=== PATIENT | female | born 1960 | race Caucasian/White ===

== ENCOUNTER 2022-03-10 19:24 | Inpatient (IN) | payer OTHER ==
[~2022-03-10] VITALS: Ht 167.6 cm; Wt 104.2 kg
[2022-03-10 19:46] LABS: BASOPHILS ABSOLUTE AUTO 0.02 K/mm3 (0.00-0.23); BASOPHILS PERCENT AUTO 0 % (0-2); EOSINOPHILS PERCENT AUTO 0 % (0-6); Hematocrit 37.4 % (33.0-51.0); Hemoglobin 11.2 g/dL (11.5-16.0); IMMATURE GRAN ABSOLUTE AUTO 0.19 K/mm3 (0.00-0.10); IMMATURE GRAN PERCENT AUTO 2 % (0-1); LYMPHOCYTES ABSOLUTE AUTO 1.18 K/mm3 (0.84-5.20); LYMPHOCYTES PERCENT AUTO 13 % (21-46); MONOCYTES ABSOLUTE AUTO 0.54 K/mm3 (0.16-1.47); MONOCYTES PERCENT AUTO 6 % (4-13); Mean Corpuscular HGB 29.5 pg (26.0-34.0); Mean Corpuscular HGB Conc 29.9 g/dL (31.5-36.5); Mean Corpuscular Volume 98 fL (80-100); Mean Platelet Volume 10.4 fL (9.1-12.4); NEUTROPHILS ABSOLUTE AUTO 7.49 K/mm3 (1.96-9.15); NEUTROPHILS PERCENT AUTO 80 % (41-73); NRBC ABSOLUTE 0.32 K/mm3 (0.00-0.02); NRBC Auto 3.4 /100 WBC (0.0-0.2); Platelet Count 261 K/mm3 (150-400); RDW Coefficient Variation 15.2 % (11.7-14.2); RDW Standard Deviation 54.7 fL (35.1-46.3); White Blood Cell Count 9.42 K/mm3 (4.00-11.30)
[2022-03-10 20:13] LABS: Magnesium, Blood 1.9 mg/dL (1.6-2.4)
[2022-03-10 20:27] LABS: Albumin, Blood 2.9 g/dL (3.4-5.0); Albumin/Globulin Ratio 0.6 (0.8-1.8); Bilirubin, Total 0.3 mg/dL (0.1-1.0); Bun/Creatinine Ratio 12.3 (12.0-20.0); Calcium, Blood 8.4 mg/dL (8.5-10.1); Creatinine, Blood 5.06 mg/dL (0.40-1.00); Globulin, Blood 4.7 g/dL (2.2-4.0); Phosphorus, Blood 8.9 mg/dL (2.5-4.9); Potassium, Blood 6.4 mmol/L (3.5-5.5); Total Protein, Blood 7.6 g/dL (6.4-8.2)
[2022-03-10 20:28] LABS: Base Excess Venous -10.9 mmol/L; PCO2 Venous 46.9 mmHg (38-42); pH Blood Venous 7.18 (7.34-7.37)
[2022-03-10 22:02] LABS: International Normalized Ratio 1.18; Prothrombin Time Results 12.3 Sec (9.7-11.5)
[2022-03-10] MEDS ORDERED: SPIRONOLACTONE25 MG PO (23:32)
[2022-03-10] MEDS ORDERED: ATENOLOL25 MG PO (23:33)
[2022-03-10] MEDS ORDERED: VICTOZA 2-0.6 MG/0.1 SQ (23:33)
[2022-03-10] MEDS ORDERED: ELIQUIS5 M3 PO (23:34)
[2022-03-10] MEDS ORDERED: DILTIAZEM 24HR240 M3 PO (23:34)
[2022-03-10] MEDS ORDERED: FUROSEMIDE20 MG PO (23:35)
[2022-03-10] MEDS ORDERED: Cyclobenzaprine5 MG (23:36)
[2022-03-10] MEDS ORDERED: NEURONTIN300 MG PO (23:37)
[2022-03-10] MEDS ORDERED: ATOR40TA PO (23:37)
[2022-03-10] MEDS ORDERED: Ventolin/Prove6.7 GM INH (23:38)
[2022-03-10] MEDS ORDERED: EUTHYROX112 MC1 PO (23:38)
[2022-03-10] MEDS ORDERED: ALLO300 PO (23:39)
[2022-03-10] MEDS ORDERED: AMLODIPINE BESYL5 MG PO (23:39)
[2022-03-11 01:18] LABS: Albumin, Blood 2.9 g/dL (3.4-5.0); Anion Gap 12 mmol/L (6-16); Blood Urea Nitrogen 64 mg/dL (8-24); Bun/Creatinine Ratio 12.2 (12.0-20.0); CO2, Blood 21 mmol/L (21-32); Calcium, Blood 8.8 mg/dL (8.5-10.1); Chloride, Blood 99 mmol/L (98-108); Creatinine, Blood 5.23 mg/dL (0.40-1.00); Glomerular Filtration Rate 9 (60-); Glucose, Blood 89 mg/dL (70-99); Phosphorus, Blood 8.5 mg/dL (2.5-4.9); Sodium, Blood 132 mmol/L (136-145)
--- NOTE | 2022-03-11 01:38 | NUR ---
PATIENT TO ICU 9 FROM ER AT 2305. PATIENT IS ALERT AND ORIENTED X4. PLACED ON BIPAP 15/10 FI02 100% RR 20s, LS CLEAR TO DIMINISHED. ON NC 02 SATS IN THE 70s. HR A. FIB 60s-70s. BP STABLE, DENIES CP/PRESSURE. SCHAFFER CHANGED OUT, UNABLE TO GET ENOUGH URINE FROM CATHETER AT THIS TIME FOR A UA. CALL PLACED TO DR. JEROME FOR CONSULT.
[2022-03-11 01:56] LABS: Base Excess Venous -8.6 mmol/L; Bicarbonate Venous 17.2 mmol/L (24.0-30.0); PCO2 Venous 55.3 mmHg (38-42); pH Blood Venous 7.17 (7.34-7.37)
[2022-03-11 06:02] LABS: Base Excess Venous -5.7 mmol/L; Bicarbonate Venous 19.3 mmol/L (24.0-30.0); PCO2 Venous 56.2 mmHg (38-42); pH Blood Venous 7.21 (7.34-7.37)
[2022-03-11 06:18] LABS: BASOPHILS ABSOLUTE AUTO 0.02 K/mm3 (0.00-0.23); BASOPHILS PERCENT AUTO 0 % (0-2); EOSINOPHILS ABSOLUTE AUTO 0.01 K/mm3 (0.00-0.68); EOSINOPHILS PERCENT AUTO 0 % (0-6); Hematocrit 34.7 % (33.0-51.0); Hemoglobin 10.6 g/dL (11.5-16.0); IMMATURE GRAN ABSOLUTE AUTO 0.09 K/mm3 (0.00-0.10); IMMATURE GRAN PERCENT AUTO 1 % (0-1); LYMPHOCYTES ABSOLUTE AUTO 1.07 K/mm3 (0.84-5.20); LYMPHOCYTES PERCENT AUTO 11 % (21-46); MONOCYTES ABSOLUTE AUTO 0.82 K/mm3 (0.16-1.47); MONOCYTES PERCENT AUTO 8 % (4-13); Mean Corpuscular HGB 29.9 pg (26.0-34.0); Mean Corpuscular HGB Conc 30.5 g/dL (31.5-36.5); Mean Corpuscular Volume 98 fL (80-100); Mean Platelet Volume 10.5 fL (9.1-12.4); NEUTROPHILS ABSOLUTE AUTO 8.09 K/mm3 (1.96-9.15); NEUTROPHILS PERCENT AUTO 80 % (41-73); NRBC ABSOLUTE 0.27 K/mm3 (0.00-0.02); NRBC Auto 2.7 /100 WBC (0.0-0.2); Platelet Count 263 K/mm3 (150-400); RDW Standard Deviation 54.4 fL (35.1-46.3); Red Blood Cell Count 3.55 M/mm3 (3.80-5.20)
--- NOTE | 2022-03-11 06:18 | NUR ---
SHIFT SUMMARY PATIENT IS ALERT AND ORIENTED X4. 02 SATS 93% ON BIPAP 20/10 90%, RR 20. HR A.FIB TO SR, 70s. BP STABLE. MEDICATED FOR HIGH POTASSIUM. ALSO GIVEN BICARB PER DR. JEROME. KARIME WITH MINIMAL OUTPUT OF 5MLS, UNBLE TO SEND UA STILL. PATIENT ABLE TO REPOSITION SELF. CALL LIGHT IN REACH.
[2022-03-11 06:43] LABS: Albumin, Blood 2.6 g/dL (3.4-5.0); Anion Gap 10 mmol/L (6-16); Blood Urea Nitrogen 65 mg/dL (8-24); CO2, Blood 23 mmol/L (21-32); Calcium, Blood 8.4 mg/dL (8.5-10.1); Chloride, Blood 102 mmol/L (98-108); Glomerular Filtration Rate 9 (60-); Glucose, Blood 93 mg/dL (70-99); Phosphorus, Blood 8.9 mg/dL (2.5-4.9); Potassium, Blood 6.2 mmol/L (3.5-5.5); Sodium, Blood 135 mmol/L (136-145)
--- NOTE | 2022-03-11 07:56 | NUR ---
CARE OF PT ASSUMED AT 0700. PT SLEEPING W BIPAP ON 14/12, 90%. PT AWAKENS TO VOICE, OX3, DROWSY. DENIES C/O PAIN, C/O SOME SOB. RT AT BEDSIDE. HIGH FLOW N/C PLACED AT 13L BY RT. OKAY TO STAY ON HIGH FLOW JONATHAN PER DR FREED WHOM IS AT BEDSIDE WELL. PT DOES HAVE SOME WOB, SCATTERED WHEEZES T/O. ALBUTEROL UDN ORDERED AND GIVEN. LOKELMA GIVEN FOR K+6.2. INSULIN 10UNITS IV W D50 ORDERED. BP'S SOFT W MAP >65. DR AGUILAR CONSULTED FOR TRIALYSIS CATHETER.
--- NOTE | 2022-03-11 08:19 | NUR ---
INSULIN 10UNITS IV/ AMP D50 GIVEN PER DR LOO/DR FREED. PT'S SATS DROPPED TO 81% ON 15L HIGH FLOW, BIPAP REPLACED BY RT. SATS >95% ON 80% FIO2.
--- NOTE | 2022-03-11 10:44 | NUR ---
TRIALYSIS CATHETER PLACED BY DR AGUILAR. BIPAP INCREASED TO 18/12, 100% BY DR AGUILAR; RT NOTIFIED. LINE VARIFIED BY XR. BROADCAST TRAFFIC COORDINATOR AT BEDSIDE, HD RN AT BEDSIDE SETTING UP FOR HD. PT MAY REQUIRE PRESSORS BP SOFT AND LABILE; LEVOPHED ORDERED. K+6.0; RESULTS GIVEN TO HD RN AND DR AGUILAR. PT DESATURATES WITH ANY MOVEMENT.
--- NOTE | 2022-03-11 15:47 | NUR ---
HD FINISHED, 2.7L REMOVED. PT JONATHAN WELL. LEVOPHED AT 1MCG USED BRIEFLY DURING HD; LEVOPHED OFF NOW. ABLE TO REMOVE BIPAP AND PLACE PT ON 12L HIGH FLOW AFTER HD. PT'S DAUGHTER UPDATED W PT'S PERMISSION.
--- NOTE | 2022-03-11 17:51 | NUR ---
DR FREED AND DR LOO STOPPED BY TO CHECK ON PT. RENAL DIET ORDERED. 02 TITRATED DOWN TO 7L. PT EATING DINNER NOW W/O COMPLAINTS.
--- NOTE | 2022-03-11 19:00 | NUR ---
ASSUMED CARE ASSUMED CARE OF THIS PATIENT AT 1900. PATIENT IS LYING IN BED WITH EYES CLOSED. DINNER TRAY ON BEDSIDE TABLE DIRECTLY IN FRONT OF PATIENT. CELL PHONE AND GLASSES ON TABLE. NO FAMILY OR VISITORS AT BEDSIDE. SCHAFFER CATHETER HAS SCANT AMOUNT OF DARK ORANGE URINE. LEVOPHED HANGING IN IV PUMP, BUT DISCONNECTED FROM THE PATIENT. PATIENT DENIES PAIN AT THIS TIME. BEDSIDE REPORT COMPLETED WITH ALETHEA GIBSON.
--- NOTE | 2022-03-11 19:20 | NUR ---
LILIA ORDER CALL MADE TO DR. JEROME TO CLARIFY LILIA TIParviz ORDER. PATIENT HAD A POTASSIUM LEVEL OF 6.0 THIS AM AND STARTED DIALYSIS AFTER THAT RESULT. ORDERS RECEIVED TO ME LILIA DALEY.
--- NOTE | 2022-03-11 23:29 | NUR ---
ASSUMPTION OF CARE PATIENT TRANSFERRED FROM ICU 9 TO ICU 2. PATIENT TRANSFERRED WITH THE ASSISTANCE OF RT. PATIENT WEARING BIPAP, TOLERATING WELL, O2 SAT >90%. VSS. SCHAFFER IN PLACE WITH MINIMAL DARK YELLOW URINE IN BAG. DENIES ANY NEEDS AT THIS TIME, BED IN LOW POSITION, CALL LIGHT IN REACH.
[2022-03-12 03:34] LABS: BASOPHILS ABSOLUTE AUTO 0.01 K/mm3 (0.00-0.23); BASOPHILS PERCENT AUTO 0 % (0-2); EOSINOPHILS ABSOLUTE AUTO 0.01 K/mm3 (0.00-0.68); EOSINOPHILS PERCENT AUTO 0 % (0-6); Hematocrit 30.3 % (33.0-51.0); Hemoglobin 9.6 g/dL (11.5-16.0); IMMATURE GRAN ABSOLUTE AUTO 0.03 K/mm3 (0.00-0.10); IMMATURE GRAN PERCENT AUTO 0 % (0-1); LYMPHOCYTES ABSOLUTE AUTO 0.89 K/mm3 (0.84-5.20); LYMPHOCYTES PERCENT AUTO 13 % (21-46); MONOCYTES ABSOLUTE AUTO 0.52 K/mm3 (0.16-1.47); MONOCYTES PERCENT AUTO 8 % (4-13); Mean Corpuscular HGB 30.1 pg (26.0-34.0); Mean Corpuscular HGB Conc 31.7 g/dL (31.5-36.5); Mean Corpuscular Volume 95 fL (80-100); Mean Platelet Volume 10.2 fL (9.1-12.4); NEUTROPHILS ABSOLUTE AUTO 5.25 K/mm3 (1.96-9.15); NEUTROPHILS PERCENT AUTO 78 % (41-73); NRBC ABSOLUTE 0.07 K/mm3 (0.00-0.02); Platelet Count 166 K/mm3 (150-400); RDW Coefficient Variation 15.2 % (11.7-14.2); RDW Standard Deviation 52.6 fL (35.1-46.3); Red Blood Cell Count 3.19 M/mm3 (3.80-5.20); White Blood Cell Count 6.71 K/mm3 (4.00-11.30)
--- NOTE | 2022-03-12 06:21 | NUR ---
SHIFT SUMMARY PATIENT ALERT AND ORIENTED, ABLE TO MAKE NEEDS KNOWN TO STAFF. VSS. PATIENT WAS ON BIPAP FROM ASSUMPTION OF CARE UNTIL 614. PATIENT ON 15L HFNC WHILE AWAKE. O2 SAT LOW TO MID 90s. PATIENT REMINDED TO FOCUS ON BREATHING WHILE OFF BIPAP TO MAINTAIN O2 SAT. PATIENT SITTING UP IN BED WATCHING TV THIS MORNING BUT WAS ABLE TO GET SOME SLEEP DURING THE SHIFT. MEDICATED PER EMAR FOR Q6 BLOOD GLUCOSE. SCHAFFER IN PLACE WITH MINIMAL DARK URINE IN DRAINAGE BAG. PATIENT ABLE TO ASSIST STAFF WITH TURNS IN THE BED. PATIENT DENIES ANY PAIN OR CHEST PRESSURE T/O NIGHT. NO OTHER SIGNIFICANT CHANGES.
[2022-03-12 06:30] LABS: Albumin, Blood 2.6 g/dL (3.4-5.0); Anion Gap 8 mmol/L (6-16); Blood Urea Nitrogen 48 mg/dL (8-24); Bun/Creatinine Ratio 9.4 (12.0-20.0); CO2, Blood 27 mmol/L (21-32); Chloride, Blood 97 mmol/L (98-108); Creatinine, Blood 5.13 mg/dL (0.40-1.00); Glomerular Filtration Rate 9 (60-); Glucose, Blood 156 mg/dL (70-99); Phosphorus, Blood 6.6 mg/dL (2.5-4.9); Potassium, Blood 4.6 mmol/L (3.5-5.5); Sodium, Blood 132 mmol/L (136-145)
--- NOTE | 2022-03-12 07:19 | NUR ---
Assumed care. Bedside report received. Pt resting in bed, alert and oriented, on 02 via humidified, high-flow NC at 12 L/min. VS stable, no acute needs at this time. Continue to monitor.
--- NOTE | 2022-03-12 18:28 | NUR ---
Shift summary. Dialysis completed this am. Pt rested in bed throughout shift. High-flow NC titrated down to 8 L/min. Pt up to bedside commode without difficulty, able to ambulate independently. VS stable throughout shift. One dose of midodrine given during dialysis for soft BP. No acute events, see assessment for further details, will continue to monitor and report off to nightshift RN.
--- NOTE | 2022-03-12 21:00 | NUR ---
ASSUMPTION OF CARE/ASSESSMENT: ASSUMED CARE OF PT AT 1900. PT IS SLEEPING BUT WAKES EASILY, A&O X 4 AND PLEASANT. PT CURRENTLY ON HFNC @ 8LPM WITH SPO2 95<; CLEAR INSPIRATORY SOUNDS, WHEEZE NOTED ON EXPIRATORY IN ALL LOBES, DIM BASES BILATERALLY. PT SINUS TACH ON MONITOR WHEN I ASSUMED CARE, BUT NOW PT IN AFIB ON MONITOR WITH HR IN THE 100'S. 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 PT HAS HYPOACTIVE BS IN ALL QUADRANTS; PT USING BEDSIDE COMMODE FOR VOIDING/ELIMINATION. PT SKIN WARM AND PPP X 4. PT HAS PIV, 20 G TO R. WRIST THAT FLUSHES AND DRAWS BACK BLOOD EASILY; PIV SALINE LOCKED. PT BACK TO SLEEP. BED LOWERE, CALL LIGHT IN REACH, WILL CONTINUE TO MONITOR.
[2022-03-13 04:05] LABS: BASOPHILS ABSOLUTE AUTO 0.01 K/mm3 (0.00-0.23); BASOPHILS PERCENT AUTO 0 % (0-2); EOSINOPHILS ABSOLUTE AUTO 0.04 K/mm3 (0.00-0.68); EOSINOPHILS PERCENT AUTO 1 % (0-6); Hematocrit 29.4 % (33.0-51.0); Hemoglobin 9.3 g/dL (11.5-16.0); IMMATURE GRAN ABSOLUTE AUTO 0.03 K/mm3 (0.00-0.10); IMMATURE GRAN PERCENT AUTO 1 % (0-1); LYMPHOCYTES ABSOLUTE AUTO 0.94 K/mm3 (0.84-5.20); LYMPHOCYTES PERCENT AUTO 17 % (21-46); MONOCYTES ABSOLUTE AUTO 0.61 K/mm3 (0.16-1.47); MONOCYTES PERCENT AUTO 11 % (4-13); Mean Corpuscular HGB Conc 31.6 g/dL (31.5-36.5); Mean Corpuscular Volume 95 fL (80-100); Mean Platelet Volume 9.9 fL (9.1-12.4); NEUTROPHILS ABSOLUTE AUTO 3.92 K/mm3 (1.96-9.15); NEUTROPHILS PERCENT AUTO 71 % (41-73); NRBC ABSOLUTE 0.02 K/mm3 (0.00-0.02); NRBC Auto 0.4 /100 WBC (0.0-0.2); Platelet Count 138 K/mm3 (150-400); RDW Coefficient Variation 15.2 % (11.7-14.2); RDW Standard Deviation 52.3 fL (35.1-46.3); White Blood Cell Count 5.55 K/mm3 (4.00-11.30)
[2022-03-13 04:26] LABS: Albumin, Blood 2.6 g/dL (3.4-5.0); Anion Gap 6 mmol/L (6-16); Blood Urea Nitrogen 38 mg/dL (8-24); Bun/Creatinine Ratio 9.4 (12.0-20.0); CO2, Blood 29 mmol/L (21-32); Calcium, Blood 8.2 mg/dL (8.5-10.1); Chloride, Blood 97 mmol/L (98-108); Creatinine, Blood 4.06 mg/dL (0.40-1.00); Glomerular Filtration Rate 12 (60-); Glucose, Blood 176 mg/dL (70-99); Potassium, Blood 3.8 mmol/L (3.5-5.5); Sodium, Blood 132 mmol/L (136-145)
[2022-03-13 04:29] LABS: Phosphorus, Blood 3.6 mg/dL (2.5-4.9)
--- NOTE | 2022-03-13 06:27 | NUR ---
SHIFT SUMMARY: NO ACUTE CHANGES OVERNIGHT. PT REMAINED ON HFNC @ 8LPM THROUGHOUT THE NIGHT AND MAINTAINED SPO2 96<. PT SLEPT THROUGHOUT THE NIGHT AND IS INDEPENDENT WITH BED MOBILITY. DR JEROME ASSESS PT VIA TELEHEALTH AND PLANS FOR DIALYSIS DAILY FOR THE NEXT TWO DAYS AND THEN MOVE TO EVERY OTHER DAY UNTIL INNATE KINDEY FUNCTIONS IMPROVE. WILL CONTINUE TO MONITOR UNTIL ONCOMING RN ARRIVES.
--- NOTE | 2022-03-13 08:40 | NUR ---
INITIAL ASSESSMENT PATIENT SITTING UP ON SIDE OF BED EATING BREAKFAST. PATIENT ALERT AND ORIENTED X 4, AFEBRILE. PATIENT DENIES PAIN. CIWA SCORE OF ZERO. PATIENT SBA TO TOILET. LUNGS CLEAR T/O AND DIM IN LOWER LOBES. PATIENT DECREASED FROM HFNC 8 L TO 4 L AND REMAINS SATTING 90% AND GREATER. PATIENT STATES SHE HAS "HER NORMAL COUGH IN AM". PATIENT IN A. FIB, HR 1-TEENS TO 120S. SBP LOW 100S TO 140S. 1+ EDEMA NOTED TO BLES. GI WNL. GOOD APPETITE. LAST BM 4 DAYS AGO. OLIGURIC; RECEIVING DAILY DIALYSIS. SKIN PALE. SCAB NOTED TO RLE. SCATTERED BRUISING NOTED. IVS SALINE LOCKED. TRIALYSIS NOTED TO L IJ. BED LOW, CALL LIGHT IN REACH. WILL CONTINUE TO MONITOR PATIENT FREQUENTLY THROUGHOUT SHIFT.
--- NOTE | 2022-03-13 17:00 | NUR ---
DR. TRINIDAD INFORMED OF HR IN 130S. ORDER RECEIVED.
--- NOTE | 2022-03-13 17:26 | NUR ---
SHIFT SUMMARY PATIENT REMAINED ALERT AND ORIENTED X 4, AFEBRILE. PATIENT HAD NO COMPLAINTS OF PAIN T/O SHIFT. CIWA REMAINED ZERO. PATIENT INDEPENDENT TO BSC. SBA TO TOILET BECAUSE OF LINES AND CORDS. PATIENT REMAINED SATTING 90% AND GREATER ON 4 L HF NC. PATIENT A.FIB TO ST, HR LOW 100S TO 130S. SBP LOW 100S TO 160S. PRN METOPROLOL ORDERED AND GIVEN FOR HR GREATER THAN 110. 1+ EDEMA REMAINS TO BLES. PATIENT HAS GOOD APPETITE. PATIENT HAD 1 BM THIS SHIFT. PATIENT HAD ONE VOID THIS SHIFT. NO CHANGES TO SKIN NOTED. PATIENT ASSISTED WITH BED BATH THIS AM. PATIENT HAD DIALYSIS THIS SHIFT. BLOOD SUGARS RANGED FROM 145 TO 248. PATIENT SITTING ON SIDE OF BED EATING DINNER AT THIS TIME. PATIENT WILL BE TRANSFERRING TO MEDICAL FLOOR, ROOM 302 SHORTLY.
--- NOTE | 2022-03-13 18:17 | NUR ---
REPORT GIVEN TO ASSUMING MEDICAL FLOOR RN.
--- NOTE | 2022-03-13 19:51 | NUR ---
ASSUMPTION OF CARE/ASSESSMENT: ASSUMED CARE OF PT AT 1900. PT IS SET TO TRANSFER TO MEDICAL FLOOR RM 302 AT 1999. REPORT GIVEN TO DEMETRI CLAIRE TO ASSUME CARE OF PT ON MEDICAL FLOOR @ 1930. THE PT IS IN BED AND AWAKE, A&O X 4 AND IN A PLEASANT MOOD. PT UPDATED ON TRANSFER STATUS AT THIS TIME. PT CURRENTLY ON HFNC @ 4 LPM WITH LUNG SOUNDS CLEAR, DIM BASEES AND EXPIRATORY WHEEZE BILATERALLY. PT IS AFIB ON MONITOR WITH HR 110'S, SBP 140'S AND NO C/O CHEST PAIN OR SOB. ABD ABESE, SOFT, AND NON-TENDER. HYPERACTIVE BS IN ALL QUADRATNS. PT USING BEDSIDE COMMODE FOR ELIMINATION/VOIDING. PT HAS A TRIALYSIS CATHETER IN [place], 20 G R. WRIST, AND PG IN [place]. PIV SALINE LOCKED AT THIS TIME. PT JUST RECIEVED BREATHING TREATMENT BY RT. PT HAS 2+ EDEMA IN BLE THIS IMPROVING WITH DIALYSIS. PPP X 4, SKIN WARM AND INTACT OTHERWISE. BED LOWERED, CALL LIGHT IN REACH, WILL CONTINUE TO MONITOR UNTIL PT IS TRANSFERRED.
--- NOTE | 2022-03-13 20:20 | NUR ---
PT TRANSFERRED FROM ICU 2 TO [facility] 302: PT TRANSFERRED TO [facility] 302 AND LEFT THE UNIT @ 2004. PT TRANSFERRED TO [facility] VIA WHEELCHAIR AND ALL BELONGINGS TRANSFERRED WITH PT AT THIS TIME.
--- NOTE | 2022-03-14 04:43 | NUR ---
Mrs Gibbs arrived to room 302 at 2043 via wheelchair. She is AOX4, denies pain or discomfort and able to communicate needs and wants. Steady gait and ambulate safely in the room. She had was admitted on 03/10/22 for JJ and hyperkalemia requiring emergent hemodialysis daily throgh the followed by a schedule of --. No events overnight, she woke up at 0400 for a snack following Am blood draw.
[2022-03-14 05:23] LABS: Albumin, Blood 2.8 g/dL (3.4-5.0); Anion Gap 4 mmol/L (6-16); Blood Urea Nitrogen 29 mg/dL (8-24); Bun/Creatinine Ratio 15.8 (12.0-20.0); CO2, Blood 32 mmol/L (21-32); Calcium, Blood 8.3 mg/dL (8.5-10.1); Chloride, Blood 101 mmol/L (98-108); Creatinine, Blood 1.84 mg/dL (0.40-1.00); Glomerular Filtration Rate 31 (60-); Glucose, Blood 207 mg/dL (70-99); Phosphorus, Blood 1.3 mg/dL (2.5-4.9); Potassium, Blood 3.5 mmol/L (3.5-5.5); Sodium, Blood 137 mmol/L (136-145)
--- NOTE | 2022-03-14 17:03 | NUR ---
SHIFT SUMMARY PATIENT IS ALERT AND ORIENTED. PATIENT HAS BEEN IND IN ROOM. PATIENT HAS HAD NO ACUTE EVENTS THIS SHIFT. VITAL SIGNS REVIEWED. PATIENT DID NOT HAVE DIALYSIS TODAY. PLAN ON DIALYSIS TOMORROW. PATIENT HAS NOT COMPLAINED OF PAIN, NAUSEA, VOMITTING OR SOB THIS SHIFT. BED IN LOCKED AND LOWEST POSITION. CALL LIGHT IN PLACE. WILL MONITOR UNTIL SHIFT CHANGE. PATIENT REMAINS ON 2L NC.
[2022-03-15 05:00] LABS: BASOPHILS ABSOLUTE AUTO 0.02 K/mm3 (0.00-0.23); BASOPHILS PERCENT AUTO 0 % (0-2); EOSINOPHILS ABSOLUTE AUTO 0.08 K/mm3 (0.00-0.68); EOSINOPHILS PERCENT AUTO 2 % (0-6); Hematocrit 30.7 % (33.0-51.0); Hemoglobin 9.6 g/dL (11.5-16.0); IMMATURE GRAN ABSOLUTE AUTO 0.04 K/mm3 (0.00-0.10); IMMATURE GRAN PERCENT AUTO 1 % (0-1); LYMPHOCYTES ABSOLUTE AUTO 0.98 K/mm3 (0.84-5.20); LYMPHOCYTES PERCENT AUTO 21 % (21-46); MONOCYTES ABSOLUTE AUTO 0.54 K/mm3 (0.16-1.47); MONOCYTES PERCENT AUTO 12 % (4-13); Mean Corpuscular HGB 29.4 pg (26.0-34.0); Mean Corpuscular HGB Conc 31.3 g/dL (31.5-36.5); Mean Corpuscular Volume 94 fL (80-100); Mean Platelet Volume 10.8 fL (9.1-12.4); NEUTROPHILS ABSOLUTE AUTO 3.05 K/mm3 (1.96-9.15); NEUTROPHILS PERCENT AUTO 65 % (41-73); Platelet Count 151 K/mm3 (150-400); RDW Coefficient Variation 15.1 % (11.7-14.2); RDW Standard Deviation 51.9 fL (35.1-46.3); Red Blood Cell Count 3.26 M/mm3 (3.80-5.20); White Blood Cell Count 4.71 K/mm3 (4.00-11.30)
[2022-03-15 05:36] LABS: Albumin, Blood 2.8 g/dL (3.4-5.0); Anion Gap 6 mmol/L (6-16); Blood Urea Nitrogen 26 mg/dL (8-24); Bun/Creatinine Ratio 21.7 (12.0-20.0); CO2, Blood 29 mmol/L (21-32); Calcium, Blood 8.2 mg/dL (8.5-10.1); Chloride, Blood 102 mmol/L (98-108); Glomerular Filtration Rate 52 (60-); Glucose, Blood 236 mg/dL (70-99); Phosphorus, Blood 1.7 mg/dL (2.5-4.9); Potassium, Blood 3.3 mmol/L (3.5-5.5); Sodium, Blood 137 mmol/L (136-145)
--- NOTE | 2022-03-15 06:27 | NUR ---
END OF SHIFT NURSING REPORT Mrs. Gibbs rested well though the night. No s/s of ETOH withdrawal noted or reported by her. She ambulates around room independently. Clear lung sounds and 2LNC. Labs done this AM and is scheduled for hemodialysis at 0800.
--- NOTE | 2022-03-15 12:00 | NUR ---
ASSUMED CARE OF PT- PT ALERT, ORIENTED, INDEPENDENT IN THE ROOM. NO S&S OF DISTRESS NOTED AT THE TIME OF REPORT. PT DENIES ANY PAIN AT THIS TIME. SITTING UP AT THE EOB EATIG HER LUNCH. ADMINISTERED INSULIN. WILL CTM.
--- NOTE | 2022-03-15 12:31 | NUR ---
LATE ENTRY: 929: RN RECIEVED REPORT FROM NURSE BOWMAN. 12:00: RN GAVE REPORT TO NURSE WALL.
--- NOTE | 2022-03-15 19:26 | NUR ---
SHIFT SUMMARY- THE PT HR WAS HIGH ON EVENING VITALS, CALLED DR FREED. RECIEVED AN ORDER FOR TELE. PLACED THE PT ON TELE PER TECH HER RATE WAS 136 SINUS, BUT THE RATE WAS TOO FAST TO GET A GOOD READING ON THE [facility]. CALLED TO NOTIFY HIM. RECIEVED A OT 250ML FLUID BOLUS. ONCE THAT WAS ADMINISTERED THE PT HR DROPPED TO 108, RECIEVED A CALL FROM TELE [facility]. CALLED DR FREED AND SPOKE TO HIM. RECIEVED ORDER FOR NIGHT RN TO NOT CALL THE HOSPITALIST UNLESS THE PT HR SUSTAINS ABOVE [address] A NURSE NOTIFY ORDER. PASSED ALL ON IN BEDSIDE REPORT TO NIGHT RN. PT IS ASYMPTOMATIC WITH THE ELEVATED HR. PT IS CURRENTLY IN BED, CALL LIGHT IN REACH NO S&S OF DISTRESS NOTED.
[2022-03-16 04:46] LABS: Hemoglobin 10.2 g/dL (11.5-16.0)
--- NOTE | 2022-03-16 04:46 | NUR ---
SHIFT SUMMARY PATIENT IS ALERT AND ORIENTED. PATIENT HAS HAD NO ACUTE EVENTS THIS SHIFT. VITAL SIGNS REVIEWED. PATIENT HAS NOT COMPLAINED OF PAIN, NAUSEA, VOMITTING, OR SOB THIS SHIFT. PATIENT HAS REMAINED TACHYCARDIC. BED IN LOWEST AND LOCKED POSITION. PATIENT HAS BEEN RESTING MOST OF SHIFT, AROUSES EASILY. CALL LIGHT IN PLACE.
[2022-03-16 05:03] LABS: Albumin, Blood 2.8 g/dL (3.4-5.0); Anion Gap 5 mmol/L (6-16); Blood Urea Nitrogen 19 mg/dL (8-24); Bun/Creatinine Ratio 22.9 (12.0-20.0); CO2, Blood 27 mmol/L (21-32); Calcium, Blood 8.4 mg/dL (8.5-10.1); Chloride, Blood 107 mmol/L (98-108); Creatinine, Blood 0.83 mg/dL (0.40-1.00); Glomerular Filtration Rate 81 (60-); Glucose, Blood 210 mg/dL (70-99); Phosphorus, Blood 2.4 mg/dL (2.5-4.9); Potassium, Blood 3.7 mmol/L (3.5-5.5); Sodium, Blood 139 mmol/L (136-145)
[2022-03-16 10:11] LABS: HBSAG SCREEN Negative (Negative); HCV AB 0.1 (0.0-0.9); HEP A AB, IGM Negative (Negative); HEP B CORE AB, IGM Negative (Negative)
--- NOTE | 2022-03-16 11:43 | NUR ---
T/O TO DR WEBER, DR SONI ANSWERED. INFORMED THAT PER DR JEROME, PLEASE REMOVE DIALYSIS CATH FROM PT. NO FURTHER DIALYSIS NEEDED AT THIS TIME.
--- NOTE | 2022-03-16 17:58 | NUR ---
PT TRANSFER/SHIFT SUMMARY... PT ARRIVED TO PCU 19 AT 1740. VS STABLE AND PT WAS ABLE TO TRANSFER FROM CHAIR TO THE BED. L/S COARSE T/O ON RA WITH O2 SATS >90%. SHE IS IN AFLUTTER IN THE 120'S, BP IS STABLE. CARDIOLOGY CONSULT IS PLACED AND PENDING PROVIDER ASSESSMENT. WILL CONITNUE TO MONITOR UNTIL REPORT IS GIVEN TO ONCOMING RN.
--- NOTE | 2022-03-16 20:28 | NUR ---
ASSUMPTION OF CARE THIS RN ASSUMED CARE AT 1900. REPORT RECEIVED FROM ALETHEA MITTAL. VSS. PT SLEEPING BUT EASILY AWAKENED W/STIMULI. PT DENIES GENERAL PAIN, CP OR PRESSURE, OR SOB. PT STATES SHE "IS JUST TIRED AND WIPED OUT". PT DENIES NEED TO USE BATHROOM AT THIS TIME. AFTER VITALS OBTAINED, PT SAT UP QUICKLY IN BED, THIS RN NOTED MILD SOB AND RN ASKED IF PT WAS OKAY, STATES "YES I JUST NEED TO SIT UP IN BED". PT HAS OCCASSIONAL COUGH, PT DENIES SPUTUM PRODUCTION. AFEBRILE. LUNG SOUNDS COARSE AND WHEEZES HEARD THROUGHOUT. PT DENIES NEED FOR BREATHING TX. CALL LIGHT IN REACH AND PT BED IN LOWEST POSITION.
--- NOTE | 2022-03-16 21:50 | NUR ---
UPDATE PT SITTING UP ON EDGE OF BED FOR ABOUT 15 - 20 MINS; THIS RN IN TO ROOM TO CHECK ON PT. VERY MILD SOB NOTED, PT DENIES ANY SOB OR PROBLEMS BREATHING. PT DENIES NEEDING ANYTHING AT THIS TIME. PT STATES SHE FEELS SHE IS BREATHING FINE. PT COUGHING FREQUENTLY, DRY COUGH. DENIES SPUTUM PRODUCTION. CALL LIGHT IN REACH, PT STILL SITTING AT EDGE OF BED
--- NOTE | 2022-03-16 23:29 | NUR ---
UPDATE AMIODARONE BOLUS STARTED PER ORDERS BY . ALSO ORDER FOR GTT PER PROTOCOL, HYDRALAZINE 25 MG, PO NOW AND THEN TID, SORBITRATE 20 MG PO NOW AND THEN TID. BOLUS INFUSING NOW PER ORDERS. VSS AND WITHIN PARAMETERS; SEE VITAL SIGNS. WILL START AMIODARONE GTT AFTER COMPLETION OF BOLUS. PT UP TO EDGE OF BED AGAIN, STATES SHE NEEDS "TO SIT UP". FAINT AUDIBLE WHEEZING HEARD, LS WHEEZES THROUGHOUT, PT SOB AND INCREASED RR AT 21. PT NOT ABLE TO TOLERATE LYING ON BACK. STATES "UNABLE TO AND IS HARD TO BREATH WHEN ON MY BACK". BREATHING TX OFFERED, PT AGREED AND RT IN TO START BREATHING TX. PT DECLINES O2 AND DOES NOT FEEL SHE NEEDS IT. SPO2 94% ON RA.
[2022-03-17 04:26] LABS: Hematocrit 30.9 % (33.0-51.0); Hemoglobin 9.7 g/dL (11.5-16.0)
[2022-03-17 04:50] LABS: Albumin, Blood 2.5 g/dL (3.4-5.0); Anion Gap 6 mmol/L (6-16); Blood Urea Nitrogen 21 mg/dL (8-24); Bun/Creatinine Ratio 24.9 (12.0-20.0); CO2, Blood 27 mmol/L (21-32); Calcium, Blood 8.3 mg/dL (8.5-10.1); Chloride, Blood 104 mmol/L (98-108); Creatinine, Blood 0.85 mg/dL (0.40-1.00); Glomerular Filtration Rate 79 (60-); Glucose, Blood 206 mg/dL (70-99); Phosphorus, Blood 3.6 mg/dL (2.5-4.9); Potassium, Blood 3.5 mmol/L (3.5-5.5); Sodium, Blood 137 mmol/L (136-145)
--- NOTE | 2022-03-17 05:07 | NUR ---
SHIFT SUMMARY PT REMAINS A&O. NO ACUTE CHANGES THROUGHOUT SHIFT. VSS. AMIODARONE GTT INFUSING PER EMAR. PT DENIES CP, PRESSURE OF SOB. ALTHOUGH THIS RN NOTES SOB W/EXERTION AND THAT PT IS UNABLE TO TOLERATE LYING ON BACK OR FLAT. PT UP OCASSIONALLY TO EDGE OF BED. PT DECLINED USE OF O2 THROUGHOUT NIGHT OR WHEN SOB. PT RESTED ON AND OFF THROUGHOUT NIGHT. PT UP TO BATHROOM INDEPENDENTLY. HR DECREASING W/AMIO GTT; HR STILL AFIB 90'S - 1 TEENS. CALL LIGHT IN REACH AND BED IN LOWEST POSITION. WILL UPDATE ONCOMING RN.
--- NOTE | 2022-03-17 17:42 | NUR ---
SHIFT SUMMARY PT REMAINS ALERT AND ORIENTED. HR REMAINS AFLUTTER 80'S. BP STABLE. O2 SATS >90% ON RA. PT DENIES ANY PAIN THIS SHIFT. PT ABLE TO STAND AND AMBULATE TO BATHROOM WITH MINIMAL ASSISTANCE. WILL CONTINUE TO MONITOR AND REPORT TO ONCOMING RN
--- NOTE | 2022-03-17 20:55 | NUR ---
CALL TO DR LAGUERRE THIS RN CALLS TO REQUEST MELATIONIN TO HELP PT SLEEP TONIGHT D/T C/O DIFFICULTY SLEEPING LAST NIGHT.
--- NOTE | 2022-03-18 00:51 | NUR ---
PT UPDATE PT APPEARS TO REST QUIETLY ON R SIDE, CONTINUOUS CARDIAC MONITORING, SATS 92% ON RA.
[2022-03-18 05:08] LABS: Bun/Creatinine Ratio 22.1 (12.0-20.0); Calcium, Blood 8.3 mg/dL (8.5-10.1); Creatinine, Blood 1.13 mg/dL (0.40-1.00); Potassium, Blood 3.5 mmol/L (3.5-5.5)
--- NOTE | 2022-03-18 06:41 | NUR ---
SHIFT SUMMARY PT AOX4 T/O SHIFT, DENIES CP, INDEPENDENT WITH REPOSITIONING AND UP TO BATHROOM. THIS RN CONCERNED D/T PT DYSPNEA WITH SLIGHT EXERTION, PT APPEARS UNDISTURBED WHEN ASKED IF SHE FEELS SOB PT DENIES. SOME HYPOTENSION THROUGHOUT THIS EARLY AM. PT APPEARS ASYMPTOMATIC WITH MAP 63-65 AND SBP 90-100. PT SATS DOWN TO 89-90% WHILE ASLEEP AT TIMES, BACK UP TO 93-96% ON RA AND WITH SITTING UP OR AT EDGE OF BED. PT REFUSES OFFERS FOR BREATHING TX'S DESPITE SLIGHT AUDBIBLE WHEEZE. PT C/O SOME TENDERNESS AT POWERGLIDE SITE, APPEARS TO FLUSH W/O DIFFICULTY, NO OBVIOUS SIGNS OF INFILTRATION OR REDNESS. UNABLE TO DRAW FROM POWERGLIDE DESPITE BEING ABLE TO DRAW FROM LINE AT START OF SHIFT. WILL DISCUSS NEED FOR REASSESMENT AND POSSIBLE NEW LINE WITH ONCOMING RN. SALINE LOCKED AT THIS TIME.
[2022-03-18] MEDS ORDERED: JARDIANCE10 MG PO (11:14)
[2022-03-18] MEDS ORDERED: METO100ER PO (11:14)
[2022-03-18] MEDS ORDERED: AMIODARONE HCL400 M2 PO (11:14)
[2022-03-18] MEDS ORDERED: Amiodarone HCl200 MG PO (11:15)
--- NOTE | 2022-03-18 12:34 | NUR ---
UPDATE DR. FREED IN WITH DC ORDERS. PT PROVIDED WITH DC INSTRUCTIONS AND EDUCATED ON MEDICATIONS. ALL QUESTIONS ANSWERED. PT TAKEN OUT BY WITH ALL OF HER BELONGINGS.
== END 2022-03-18 12:12 | disposition home or self-care (01) | DRG 682 ==
LOC: ER 19:24 → PCU 19:25 → ICUW 19:25 → ICUE 19:25 → MEDS 19:25 → ICUW 23:05 → ICUE 03-11 21:30 → MEDS 03-13 20:04 → PCU 03-16 17:36
PROVIDERS: Emergency Medicine; Family Medicine; Family Medicine Adult Medicine; Internal Medicine Critical Care Medicine; Internal Medicine Nephrology; ADMIT Family Medicine
PROC: 5A1D70Z Performance of Urinary Filtration, Intermittent, Less than 6 Hours Per Day (ICD-10-PCS; principal; 2022-03-10)
PROC: 3E033XZ Introduction of Vasopressor into Peripheral Vein, Percutaneous Approach (ICD-10-PCS; 2022-03-11)
PROC: 02HV33Z Insertion of Infusion Device into Superior Vena Cava, Percutaneous Approach (ICD-10-PCS; 2022-03-11)
DX: N17.9 Acute kidney failure, unspecified (principal); I50.23 Acute on chronic systolic (congestive) heart failure; J96.21 Acute and chronic respiratory failure with hypoxia; J96.22 Acute and chronic respiratory failure with hypercapnia; I44.2 Atrioventricular block, complete; I48.20 Chronic atrial fibrillation, unspecified; E87.4 Mixed disorder of acid-base balance; I42.9 Cardiomyopathy, unspecified; I48.92 Unspecified atrial flutter; E87.5 Hyperkalemia; I11.0 Hypertensive heart disease with heart failure; M19.90 Unspecified osteoarthritis, unspecified site; F17.210 Nicotine dependence, cigarettes, uncomplicated; E11.9 Type 2 diabetes mellitus without complications; E03.9 Hypothyroidism, unspecified; F41.9 Anxiety disorder, unspecified; F32.A Depression, unspecified; F10.20 Alcohol dependence, uncomplicated; Z71.6 Tobacco abuse counseling; Z71.41 Alcohol abuse counseling and surveillance of alcoholic; Z98.1 Arthrodesis status; Z98.890 Other specified postprocedural states; Z98.891 History of uterine scar from previous surgery; Z79.01 Long term (current) use of anticoagulants; Z79.890 Hormone replacement therapy; Z79.899 Other long term (current) drug therapy
CPT/HCPCS: 36415; 36556; 51702; 51798; 71045; 76770; 80048; 80053; 80069; 80074; 82550; 82728; 82803; 82947; 83036; 83735; 83880; 84100; 84132; 84443; 84484; 85014; 85018; 85025; 85610; 86317; 93005; 93010; 93306; 94640; 94644; 94660; 94664; 94760; 94762; 96365; 96367; 96375; 97112; 97161; 99285-25; A9270; C1751; C1752; J0282; J0610; J1815; J3475; J7050; J7060